=== PATIENT | female | born 1985 | race Hispanic/Latino ===

== ENCOUNTER 2021-09-17 23:39 | Emergency (ER) | payer OTHER ==
[~2021-09-17] VITALS: Ht 157.5 cm; Wt 87.1 kg
[2021-09-17 23:40] VITALS: BP 121/84
[2021-09-18 01:45] LABS: BASO % 0.2 % (0.0-1.0); EOS % 0.3 % (0.0-3.0); HEMATOCRIT 41.1 % (36.0-47.0); HEMOGLOBIN 13.2 g/dl (12.0-15.5); LYMPH # 2.6 10^3/uL (1.5-5.0); LYMPH % 24.1 % (24.0-44.0); MEAN CORPUSCULAR HGB CONC 32.1 g/dl (32.0-36.5); MEAN CORPUSCULAR VOLUME 84.2 fl (80.0-96.0); MONO # 0.5 10^3/uL (0.0-0.8); MONO % 4.6 % (2.0-8.0); NEUTROPHILS # 7.6 10^3/uL (1.5-8.5); NEUTROPHILS % 70.5 % (36.0-66.0); PLATELET COUNT, AUTOMATED 174 10^3/uL (150-450); RED BLOOD COUNT 4.88 10^6/uL (4.00-5.40); WHITE BLOOD COUNT 10.8 10^3/uL (4.0-10.0)
[2021-09-18 03:14] LABS: GC DNA AMPLIFICATION NEGATIVE (NEGATIVE)
[2021-09-18] MEDS ORDERED: NAPR-885 PO (05:41)
[2021-09-18] MEDS ORDERED: TRIA0.5O TOP (05:41)
[2021-09-18 05:55] LABS: ERYTHROCYTE SEDIMENTATION RATE 3 mm/hr (0-20)
== END 2021-09-18 05:59 | disposition home or self-care (01) ==
LOC: M ED 23:39
DX: L40.50 Arthropathic psoriasis, unspecified (principal)